=== PATIENT | male | born 1980 | race Caucasian/White ===

== ENCOUNTER → 2018-05-03 | Outpatient (CLI) | payer OTHER | END | disposition home or self-care (01) | LOC: CFH 07:11 | PROVIDERS: ATTEND Nurse Practitioner Family | DX: S83.211A Bucket-handle tear of medial meniscus, current injury, right knee, initial encounter (principal); S83.271A Complex tear of lateral meniscus, current injury, right knee, initial encounter; M25.461 Effusion, right knee; M94.261 Chondromalacia, right knee; X58.XXXA Exposure to other specified factors, initial encounter; Y93.89 Activity, other specified; Y92.89 Other specified places as the place of occurrence of the external cause; Y99.8 Other external cause status ==

== ENCOUNTER → 2018-06-25 | Outpatient (CLI) | payer OTHER ==
[~2018-06-25] MED LIST: NONE PER PT
== END | disposition home or self-care (01) ==
LOC: STAR 15:20
PROVIDERS: ATTEND Orthopaedic Surgery
DX: Z02.9 Encounter for administrative examinations, unspecified (principal)

== ENCOUNTER 2018-06-30 05:52 | Day surgery (SDC) | payer OTHER ==
[~2018-06-30] VITALS: Ht 180.3 cm; Wt 84.0 kg
[2018-06-30 06:21] VITALS: BP 137/87
[2018-06-30] MEDS ORDERED: LACTATED RINGERS 1,000 ML IV SCH (06:26)
[2018-06-30] MEDS ORDERED: FENTANYL PF 250 MCG/5ML ONE (06:58)
[2018-06-30] MEDS ORDERED: MIDAZOLAM 1 MG/ML, 2ML ONE (06:58)
[2018-06-30] MEDS ORDERED: ROCURONIUM 10 MG/ML,10ML ONE (07:26)
[2018-06-30] MEDS ORDERED: SUCCINYLCHOLINE 20 MG/ML, 10ML ONE (07:26)
[2018-06-30] MEDS ORDERED: SCOPOLAMINE PATCH, 1.5MG PATCH.TD72 TD ONE (07:30)
[2018-06-30] MEDS ORDERED: OxyconTIN ER 20 MG TAB.ER PO ONE (07:30)
[2018-06-30] MEDS ORDERED: ONDANSETRON ODT 8 MG PO ONE (07:30)
[2018-06-30] MEDS ORDERED: ACETAMINOPHEN 500 MG TABLET PO ONE (07:30)
[2018-06-30] MEDS ORDERED: GABAPENTIN 300 MG CAPSULE PO ONE (07:30)
[2018-06-30] MEDS ORDERED: EPINEPHRINE 1 MG/ML, 1ML ONE (07:39)
[2018-06-30] MEDS ORDERED: BUPIVACAINE 0.25% ONE ×2 (07:39→10:28)
[2018-06-30] MEDS ORDERED: KETOROLAC 30 MG/1 ML ONE (08:10)
[2018-06-30] MEDS ORDERED: BUPIVACAINE/PF 0.5% ONE (08:10)
[2018-06-30] MEDS ORDERED: PROMETHAZINE 25 MG/ML, 1ML IV PRN (08:30)
[2018-06-30] MEDS ORDERED: HYDROmorphone 2 MG/ML, 1ML IVPush PRN (08:30)
[2018-06-30] MEDS ORDERED: MIDAZOLAM 1 MG/ML, 2ML IV PRN (08:30)
[2018-06-30] MEDS ORDERED: FENTANYL PF 100 MCG/2ML IV PRN (08:30)
[2018-06-30] MEDS ORDERED: OXYcodone 5 MG/5 ML ORAL.SOL UDC PO PRN (08:30)
[2018-06-30] MEDS ORDERED: MEPERIDINE/PF 25MG/0.5ML IVPush PRN (08:30)
[2018-06-30] MEDS ORDERED: ONDANSETRON 2MG/ML, 2ML IV PRN (08:30)
[2018-06-30] MEDS ORDERED: ALBUTEROL/IPRATROPIUM 2.5MG/0.5MG, 3 ML NPPB PRN (08:30)
[2018-06-30] MEDS ORDERED: CEFAZOLIN 1,000 MG ONE (09:34)
[2018-06-30] MEDS ORDERED: ONDANSETRON 2MG/ML, 2ML ONE (09:34)
[2018-06-30] MEDS ORDERED: DEXAMETHASONE 4 MG/ML, 1ML ONE (09:34)
[2018-06-30] MEDS ORDERED: PROPOFOL 10 MG/ML, 20ML ONE (09:34)
[2018-06-30] MEDS ORDERED: OXYcodone 5 MG/5 ML ORAL.SOL UDC ONE (10:17)
== END 2018-06-30 12:05 | disposition home or self-care (01) ==
LOC: OUT 05:52
PROVIDERS: ATTEND Orthopaedic Surgery
DX: M23.221 Derangement of posterior horn of medial meniscus due to old tear or injury, right knee (principal); M23.241 Derangement of anterior horn of lateral meniscus due to old tear or injury, right knee; M23.611 Other spontaneous disruption of anterior cruciate ligament of right knee
CPT/HCPCS: 29880; 29888; 64447; C1713; C1762; J0171; J0330; J0690; J1100; J1885; J2250; J2405; J2704; J3010; J3490; J7120; Q0162